=== PATIENT | female | born 1950 | race Caucasian/White ===

== ENCOUNTER → 2025-04-25 07:27 | Outpatient (CLI) | payer MEDICARE, SELFPAY ==
--- NOTE | 2025-04-25 | DI.US.S_ITS ---
PROCEDURE: US THYROID INDICATIONS: Hyperthyroidism TECHNIQUE: Real-time scanning was performed of the thyroid gland, with image documentation. COMPARISON: None. FINDINGS: Thyroid: Right lobe measures 3.6 x 1.2 x 1.9 cm. Left lobe measures 2.8 x 1.2 x 1 cm. No significant isthmus. Very heterogeneous echotexture. No discrete nodules. IMPRESSION: Very heterogeneous thyroid parenchymal echotexture, without focal actionable nodule. Dictated by: Babar Jarrell M.D. on 04/25/2025 at 9:26 Approved by: Babar Jarrell M.D. on 04/25/2025 at 9:28
== END ==
PROVIDERS: PCP Family Medicine; Referring Provider Family Medicine; Visit Provider Family Medicine
DX: E03.9 Hypothyroidism, unspecified (principal)
CPT/HCPCS: 76536